=== PATIENT | female | born 1985 | race Caucasian/White ===

== ENCOUNTER 2023-09-29 15:50 | Outpatient (CLI) | payer OTHER, SELFPAY ==
--- NOTE | 2023-09-29 16:00 | CRLHL7_ITS ---
For Patients: As a result of the Century Cures Act, medical imaging exams and procedure reports are released immediately into your electronic medical record. You may view this report before your referring provider. If you have questions, please contact your health care provider. CLINICAL HISTORY: Pelvic pain TECHNIQUE: Real time, acevedo scale images were acquired of the pelvis using a transabdominal and transvaginal approach. Color Doppler analysis was performed of the ovaries. FINDINGS: The uterus measures 8.8 x 4.3 x 4.8 centimeters. IUD is in the endometrial cavity in appropriate position. Endometrium suboptimally visualized. The ovaries are unremarkable the right ovary measures 3.6 x 2.9 x 2.2 centimeters. The left ovary measures 3.6 x 2.4 x 1.4 centimeters blood flow on color Doppler to both ovaries. IMPRESSION: Unremarkable pelvic ultrasound. IUD in the endometrial cavity in appropriate position. Dictated by Evita Gonsalez MD @ 10/02/2023 6:05:14 AM (Electronically Signed)
== END 2023-09-29 15:51 | disposition home or self-care (01) ==
LOC: US 15:50
PROVIDERS: PCP Family Medicine; Visit Provider Physician Assistant
DX: R10.2 Pelvic and perineal pain (principal)
CPT/HCPCS: 76830; 76856; 93976

== ENCOUNTER 2024-11-07 09:39 | Outpatient (CLI) | payer OTHER, SELFPAY | END 2024-11-07 09:40 | disposition home or self-care (01) | PROVIDERS: PCP Family Medicine; Visit Provider Family Medicine | DX: G25.2 Other specified forms of tremor (principal); R53.83 Other fatigue; Z13.220 Encounter for screening for lipoid disorders; Z13.29 Encounter for screening for other suspected endocrine disorder | CPT/HCPCS: 80053; 80061; 84443 ==

== ENCOUNTER 2025-06-17 09:00 | Outpatient (CLI) | payer OTHER, SELFPAY ==
--- NOTE | 2025-06-17 09:15 | CRLHL7_ITS ---
For Patients: As a result of the 21st Century Cures Act, medical imaging exams and procedure reports are released immediately into your electronic medical record. You may view this report before your referring provider. If you have questions, please contact your health care provider. EXAM: MRI OF THE RIGHT ANKLE, WITHOUT CONTRAST CLINICAL INDICATION: Instability. Remote injury. PRIOR SURGERY: None. COMPARISON PLAIN FILMS: 16 June 2025. COMPARISON CROSS-SECTIONAL IMAGING STUDIES: None. TECHNICAL: Axial, sagittal and coronal T1, PD, PDFS and STIR images. 1.5 Elle MR scanner. FINDINGS: OSSEOUS STRUCTURES: No fracture, bone marrow contusion, stress change or marrow replacement process. JOINT SPACES: Very shallow focus of sclerotic cysts in the posterior medial shoulder of the talar dome with some surrounding T2 marrow edema. No discrete fracture. Anterior to posterior length of sclerosis and cyst about 8 mm. Depth not more than 2 mm. No full-thickness overlying cartilage defect although there may be some heterogeneous signal for grade 1 chondromalacia with some minor irregular grade 2 thinning. Posterior subtalar joint looks normal. The talar-navicular and calcaneocuboid joint spaces are maintained. Joint spaces within the visualized midfoot and at the midfoot-forefoot junction are maintained. LIGAMENTS: Syndesmotic Ligaments: The anterior and posterior syndesmotic ligaments are intact. Lateral Ligaments: The anterior talofibular, calcaneofibular and posterior talofibular ligaments are intact. Medial Ligaments: The superficial and deep components of the deltoid ligament complex are maintained. Spring Ligaments: The calcaneonavicular spring ligament complex is intact. TENDONS: Flexor Tendons: The posterior tibial, flexor digitorum longus and flexor hallucis longus tendons are intact. Extensor Tendons: The anterior extensor tendons are intact. Achilles Tendon: The Achilles tendon is intact without tendinosis, tear or peritendinitis changes. Peroneal Tendons: The peroneus longus and brevis tendons are intact. No accessory peroneus quartus. TARSAL TUNNEL: The soft tissues of the tarsal tunnel are normal without mass or fluid collection. No abnormality along the course of the medial or lateral plantar nerves. SINUS TARSI: Thin infiltrating multiloculated ganglion extends up from the sinus tarsi along the extensor retinaculum slip superficial to the lateral capsule and ATFL and under the lateral margin of the extensor digitorum musculotendinous junction. PLANTAR SOFT TISSUES: The plantar fascia is intact. There is no significant plantar calcaneal spur. No atrophy or edema of the abductor digiti minimi muscle belly. OTHER FINDINGS: There is no soft tissue mass or fluid collection. IMPRESSION: 1. 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 No discrete fracture or displaced fragment. 2. Ganglion from the sinus tarsi tracks ventral and cephalad along the extensor retinaculum slipped than under the extensor digitorum musculotendinous junction. Dictated by Chris Menezes MD @ 06/18/2025 9:06:33 AM (Electronically Signed)
== END 2025-06-17 09:01 | disposition home or self-care (01) ==
LOC: MRI 09:01
PROVIDERS: PCP Family Medicine; Visit Provider Family Medicine
DX: M25.371 Other instability, right ankle (principal); M25.571 Pain in right ankle and joints of right foot; G89.29 Other chronic pain
CPT/HCPCS: 73721